=== PATIENT | female | born 1985 | race American Indian/Alaskan Native ===

== ENCOUNTER 2016-06-30 16:21 | Emergency (ER) | payer OTHER ==
[2016-06-30 16:21] VITALS: BMI 30.2
[2016-06-30 17:25] VITALS: BP 124/79; PULSE 97; RESP 18; TEMP 98.1; O2SAT 99
[2016-06-30] MEDS ORDERED: Sodium Chloride 0.9% 1,000 ML IV STA (18:50)
[2016-06-30] MEDS ORDERED: Morphine 4 mg/ml ISec IVP STA (18:50)
[2016-06-30 19:39] LABS: ADD MANUAL DIFF? NO
[2016-06-30 19:48] LABS: EOS % 0.2 % (1.5-5.0); GRAN # 11.73 (1.4-6.5); GRAN % 86.4 % (50.0-68.0); HEMATOCRIT 36.4 % (36.0-48.0); LYMPH # 1.3 (1.2-3.4); LYMPH % 9.7 % (22.0-35.0); MEAN CELL VOLUME 92.6 fL (80.0-105.0); MEAN CORPUSCULAR HEMOGLOBIN 31.8 pg (25.0-35.0); MEAN CORPUSCULAR HGB CONC 34.3 g/dl (31.0-37.0); MEAN PLATELET VOLUME 9.6 fl (7.0-11.0); MONO # 0.5 (0.1-0.6); MONO % 3.7 % (1.0-6.0); PLATELET COUNT 328 10^3/uL (120.0-450.0); RED CELL DISTRIBUTION WIDTH 12.2 % (11.5-14.5); WHITE BLOOD COUNT 13.6 10^3/ul (4.5-11.0)
[2016-06-30 19:51] LABS: RETIC% 1.99 % (0.5-1.5)
[2016-06-30 19:53] LABS: ALB/GLOB RATIO 1.2 (1.1-1.8); ALKALINE PHOSPHATASE 73 U/L (38-133); ALT/SGPT 27 U/L (7-56); AST/SGOT 23 U/L (15-39); BLOOD UREA NITROGEN 9 mg/dL (7-21); CALCIUM 9.5 mg/dL (8.4-10.5); CARBON DIOXIDE 25 mmol/L (21-33); CHLORIDE 102 mmol/L (98-107); GFR AFRICAN-AMERICAN > 60; GLUCOSE,RANDOM 109 mg/dL (70-110); LIPASE 44 U/L (23-300); POTASSIUM 4.4 mmol/L (3.6-5.0); SODIUM 138 mmol/L (132-148); TOTAL PROTEIN 7.8 g/dL (5.8-8.3)
[2016-06-30 20:37] LABS: INR 0.93 (0.93-1.08); PARTIAL THROMBOPLASTIN TIME 24.5 Seconds (23.7-30.8)
[2016-06-30 22:44] LABS: URINE BILIRUBIN NEGATIVE (NEGATIVE); URINE BLOOD MODERATE (NEGATIVE); URINE GLUCOSE (UA) NEGATIVE (NEGATIVE); URINE KETONE NEGATIVE (NEGATIVE); URINE LEUKOCYTE ESTERASE MODERATE Leu/uL (NEGATIVE); URINE PROTEIN NEGATIVE mg/dL (<30 mg/dL); URINE UROBILINOGEN 0.2 E.U./dL (<1 E.U./dL)
[2016-06-30 22:47] LABS: URINE APPEARANCE TURBID (CLEAR); URINE COLOR YELLOW (YELLOW)
[2016-06-30] MEDS ORDERED: cefTRIAXone 1 gm 100 ML IVPB STA (22:51)
[2016-06-30 22:54] LABS: URINE BACTERIA MOD (NEG)
--- NOTE | 2016-06-30 23:18 | ED PDOC ---
Arrival/HPI - General Chief Complaint: Pain, Chronic Time Seen by Provider: 06/30/16 18:32 Historian: Patient - History of Present Illness Narrative History of Present Illness (Text): 06/30/16 23:15 30yo female with alleged history of sickle cell who present with complaint of generalized bodyache and diffuse abdominal pain. +Dysuria. denies nausea, vomiting, diarrhea, constipation, hematuria, fever, chills. She thinks she is having sickle cell crisis. states she was given a prescription for her sickle cell months ago by her PMD, but never filled it. She notes that she have not taken any medication for long time. Past Medical History - Provider Review Nursing Documentation Reviewed: Yes - Infectious Disease Hx of Infectious Diseases: None - Tetanus Immunization Tetanus Immunization: Unknown - Past Medical History Past Medical History: No Previous - Cardiac Hx Cardiac Disorders: No - Pulmonary Hx Respiratory Disorders: No - Neurological Hx Neurological Disorder: No - HEENT Hx HEENT Disorder: No - Renal Hx Renal Disorder: No - Endocrine/Metabolic Hx Endocrine Disorders: No - Hematological/Oncological Hx Sickle Cell Disease: Yes - Integumentary Hx Dermatological Disorder: No - Musculoskeletal/Rheumatological Hx Musculoskeletal Disorders: No - Gastrointestinal Hx Gastrointestinal Disorders: No - Genitourinary/Gynecological Hx Genitourinary Disorders: No - Psychiatric Hx Psychophysiologic Disorder: No Hx Depression: No Hx Emotional Abuse: No Hx Physical Abuse: No Hx Substance Use: No - Past Surgical History Past Surgical History: No Previous - Anesthesia Hx Anesthesia: No Hx Anesthesia Reactions: No Hx Malignant Hyperthermia: No - Suicidal Assessment Feels Threatened In Home Enviroment: No Family/Social History - Physician Review Nursing Documentation Reviewed: Yes Family/Social History: Unknown Family HX Smoking Status: Heavy Smoker > 10 Cigarettes Daily Hx Alcohol Use: Yes (SOCIAL) Frequency of alcohol use: Socially Hx Substance Use: No Hx Substance Use Treatment: No Allergies/Home Meds Allergies/Adverse Reactions: Allergies aspirin Allergy (Verified 01/07/16 19:24) SWELLING Review of Systems - Physician Review All systems were reviewed & negative as marked: Yes - Review of Systems Eyes: Normal ENT: Normal Respiratory: Normal Cardiovascular: Normal Gastrointestinal: Abdominal Pain. absent: Constipation, Diarrhea, Nausea, Vomiting, Hematochezia, Hematemesis Genitourinary Female: Dysuria. absent: Frequency, Hematuria Musculoskeletal: Normal Skin: Normal Neurological: Normal Endocrine: Normal Hemo/Lymphatic: Normal Psychiatric: Normal Physical Exam Vital Signs Reviewed: Yes Vital Signs Temp Pulse Resp BP Pulse Ox 06/30/16 17:21 98.1 F 97 H 18 124/79 99 Temperature: Afebrile Blood Pressure: Normal Pulse: Regular Respiratory Rate: Normal Appearance: Positive for: Well-Appearing, Non-Toxic, Comfortable Pain Distress: None Mental Status: Positive for: Alert and Oriented X 3 - Systems Exam Head: Present: Atraumatic, Normocephalic Pupils: Present: PERRL Extroacular Muscles: Present: EOMI Conjunctiva: Present: Normal Mouth: Present: Moist Mucous Membranes Neck: Present: Normal Range of Motion Respiratory/Chest: Present: Clear to Auscultation, Good Air Exchange. No: Respiratory Distress, Accessory Muscle Use Cardiovascular: Present: Regular Rate and Rhythm, Normal S1, S2. No: Murmurs Abdomen: Present: Tenderness (Diffuse), Normal Bowel Sounds (Hyperactive x4), Other (Soft). No: Distention, Peritoneal Signs, Rebound, Guarding, McBurney's Point Tender, Rovsing's Sign Present Back: Present: Normal Inspection Upper Extremity: Present: Normal Inspection. No: Cyanosis, Edema Lower Extremity: Present: Normal Inspection. No: Edema Neurological: Present: GCS=15, CN II-XII Intact, Speech Normal Skin: Present: Warm, Dry, Normal Color. No: Rashes Psychiatric: Present: Alert, Oriented x 3, Normal Insight, Normal Concentration Medical Decision Making ED Course and Treatment: 07/01/16 03:39 PT presented in ED for stated history. She states her pain improved in ED on re evaluation. Lab was unremarkable except mild leukocytosis. She was treated with Rocephin in ED for UTI and DC home with keflex. Referred to her PMD . TRT ER for any new or worsening symptoms. - Lab Interpretations Lab Results: 06/30/16 19:34 06/30/16 19:34 Lab Results 06/30/16 22:29: Urine Color Yellow, Urine Appearance Turbid, Urine pH 6.0, Ur Specific [place] 1.025, Urine Protein Negative, Urine Glucose (UA) Negative, Urine Ketones Negative, Urine Blood Moderate H, Urine Nitrate Negative, Urine Bilirubin Negative, Urine Urobilinogen 0.2, Ur Leukocyte Esterase Moderate H, Urine RBC 1 - 3, Urine WBC 10 - 15, Ur Epithelial Cells 4 - 5, Urine Bacteria Mod 06/30/16 19:34: WBC 13.6 H D, RBC 3.93, Hgb 12.5, Hct 36.4, MCV 92.6, MCH 31.8, MCHC 34.3, RDW 12.2, Plt Count 328, MPV 9.6, Gran % 86.4 H, Lymph % (Auto) 9.7 L , [place] % (Auto) 3.7, Eos % (Auto) 0.2 L, Baso % (Auto) 0.0, Gran # 11.73 H, Lymph # 1.3, [place]in # 0.5, Eos # 0.0, Baso # 0.00, Retic Count 1.99 H, PT 10.0, INR 0.93, APTT 24.5, Sodium 138, Potassium 4.4, Chloride 102, Carbon Dioxide 25 , Anion Gap 15, BUN 9, Creatinine 0.8, Est GFR ( Amer) > 60, Est GFR (Non -Af Amer) > 60, Random Glucose 109, Calcium 9.5, Total Bilirubin 1.0, AST 23, ALT 27, Alkaline Phosphatase 73, Total Protein 7.8, Albumin 4.2, Globulin 3.6, Albumin/Globulin Ratio 1.2, Lipase 44 - Medication Orders Current Medication Orders: Discontinued Medications Famotidine (Pepcid) 20 mg IVP STAT STA Stop: 06/30/16 18:51 Last Admin: 06/30/16 19:48 Dose: 20 MG IVP Administration Document 06/30/16 19:48 HI (Rec: 06/30/16 19:48 [facility] [id number]) Charges for Administration # of IVP Administrations 1 Sodium Chloride (Sodium Chloride 0.9%) 1,000 mls @ 1,000 mls/hr IV .Q1H STA Stop: 06/30/16 19:49 Last Admin: 06/30/16 19:48 Dose: 1,000 MLS/HR eMAR Start Stop Document 06/30/16 19:48 HI (Rec: 06/30/16 19:51 [facility] [id number]) Intravenous Solution Start Date 06/30/16 Start Time 19:48 End Date 06/30/16 End time 20:48 Total Infusion Time 60 Ceftriaxone Sodium (Rocephin 1 Gram Ivpb) 100 mls @ 200 mls/hr IVPB STAT STA PRN Reason: Protocol Stop: 06/30/16 23:20 Last Admin: 06/30/16 23:43 Dose: 200 MLS/HR eMAR Start Stop Document 06/30/16 23:43 FJPatric (Rec: 06/30/16 23:43 FJA [id number]) Intravenous Solution Start Date 06/30/16 Start Time 23:43 End Date 07/01/16 End time 00:13 Total Infusion Time 30 Morphine Sulfate (Morphine) 4 mg IVP STAT STA Stop: 06/30/16 18:51 Last Admin: 06/30/16 19:44 Dose: 4 MG MAR Pain Assessment Document 06/30/16 19:44 HI (Rec: 06/30/16 19:48 [facility] [id number]) Pain Reassessment Is this a pain reassessment? No Sleep Is patient sleeping during reassessment? No Presence of Pain Presence of Pain No Pain Scale Used Pain Scale Used Numeric Location Pain Location Body Site Abdomen Description Intensity of Pain at present 9 Pain Behavior Moaning IVP Administration Document 06/30/16 19:44 HI (Rec: 06/30/16 19:48 [id number]) Charges for Administration # of IVP Administrations 1 Disposition/Present on Arrival - Present on Arrival Any Indicators Present on Arrival: No History of DVT/PE: No History of Uncontrolled Diabetes: No Urinary Catheter: No History of Decub. Ulcer: No History Surgical Site Infection Following: None - Disposition Have Diagnosis and Disposition been Completed?: Yes Diagnosis: UTI (urinary tract infection) Disposition: HOME/ ROUTINE Disposition Time: 23:20 Patient Plan: Discharge Condition: STABLE Discharge Instructions (ExitCare): Urinary Tract Infection in Women (ED) Additional Instructions: Take medication as directed Drink plenty of fluid Follow up with your Doctor Return to ER for any new or worsening symptoms Prescriptions: Cephalexin [cephalexin] 500 mg PO QID #28 cap Famotidine [Pepcid] 40 mg PO DAILY #15 tab Referrals: Vince Baker, [Primary Care Provider] - Follow up with primary Forms: WORK NOTE
== END 2016-07-01 01:10 | disposition home or self-care (01) ==
LOC: ED 16:21
DX: N39.0 Urinary tract infection, site not specified (principal)
CPT/HCPCS: 80053; 81001; 83690; 85025; 85044; 85610; 85730; 87086; 96361; 96365; 96375; 99281; J0696; J2270; J7040

== ENCOUNTER 2016-08-22 07:32 | Observation (INO) | payer OTHER ==
[2016-08-22 07:38] VITALS: BMI 27.4
[2016-08-22] MEDS ORDERED: Sodium Chloride 0.9% 1,000 ML IV STA (07:51)
--- NOTE | 2016-08-22 08:06 | ED PDOC ---
Arrival/HPI <Lew Martinsiy - Last Filed: 08/22/16 12:07> - General Historian: Patient - History of Present Illness Time/Duration: 24 hours Symptom Onset: Gradual Symptom Course: Worsening Quality: Aching Severity Level: 9 <Maik Quarles - Last Filed: 08/22/16 15:33> - General Chief Complaint: Abdominal Pain Time Seen by Provider: 08/22/16 07:38 - History of Present Illness Narrative History of Present Illness (Text): 31 F with pmh of sickle trait presents with abdominal pain. Pt states that her pain started yesterday and has gotten progressively worse. She denies any nausea or vomiting but states that she had one episode of non bloody diarrhea this morning. Pt admits to partying last night and drinking "enough" alcohol. Pt also complaining of dysuria but denies any frequency or urgency. Denies any headache, dizziness, f/c, chest pain, shortness of breath, n/v. PMD: Dr Milton Buenrostro (Maik Quarles) Past Medical History - Provider Review Nursing Documentation Reviewed: Yes - Infectious Disease Hx of Infectious Diseases: None - Tetanus Immunization Tetanus Immunization: Unknown - Past Medical History Past Medical History: No Previous - Cardiac Hx Cardiac Disorders: No - Pulmonary Hx Respiratory Disorders: No - Neurological Hx Neurological Disorder: No - HEENT Hx HEENT Disorder: No - Renal Hx Renal Disorder: No - Endocrine/Metabolic Hx Endocrine Disorders: No - Hematological/Oncological Hx Sickle Cell Disease: Yes - Integumentary Hx Dermatological Disorder: No - Musculoskeletal/Rheumatological Hx Musculoskeletal Disorders: No - Gastrointestinal Hx Gastrointestinal Disorders: No - Genitourinary/Gynecological Hx Genitourinary Disorders: No - Psychiatric Hx Psychophysiologic Disorder: No Hx Depression: No Hx Emotional Abuse: No Hx Physical Abuse: No Hx Substance Use: No - Past Surgical History Past Surgical History: No Previous - Anesthesia Hx Anesthesia: No Hx Anesthesia Reactions: No Hx Malignant Hyperthermia: No - Suicidal Assessment Feels Threatened In Home Enviroment: No <Maik Quarles - Last Filed: 08/22/16 15:33> Family/Social History Family/Social History: No Known Family HX Smoking Status: Heavy Smoker > 10 Cigarettes Daily Hx Alcohol Use: Yes Frequency of alcohol use: Socially Hx Substance Use: No Hx Substance Use Treatment: No <Maik Quarles - Last Filed: 08/22/16 15:33> Allergies/Home Meds <Pillo Martins - Last Filed: 08/22/16 12:07> <Maik Quarles - Last Filed: 08/22/16 15:33> Allergies/Adverse Reactions: Allergies aspirin Allergy (Verified 08/22/16 14:28) SWELLING fruit Allergy (Uncoded 08/22/16 14:28) NAUSEA Home Medications: Home Meds Medication Instructions Recorded Confirmed No Known Home Med 08/22/16 08/22/16 Review of Systems - Review of Systems Constitutional: absent: Fatigue, Fevers Eyes: absent: Vision Changes ENT: absent: Hearing Changes Respiratory: absent: SOB, Cough Cardiovascular: absent: Chest Pain, Palpitations Gastrointestinal: Abdominal Pain, Diarrhea. absent: Nausea, Vomiting Genitourinary Female: Dysuria. absent: Frequency Musculoskeletal: absent: Arthralgias Skin: absent: Rash Neurological: absent: Headache, Dizziness Endocrine: absent: Diaphoresis Psychiatric: absent: Anxiety, Depression <Maik Quarles - Last Filed: 08/22/16 15:33> Physical Exam Temperature: Afebrile Blood Pressure: Normal Pulse: Tachycardic Respiratory Rate: Normal Appearance: Positive for: Well-Appearing, Non-Toxic, Comfortable Pain Distress: Mild Mental Status: Positive for: Alert and Oriented X 3 - Systems Exam Head: Present: Atraumatic, Normocephalic Pupils: Present: PERRL Extroacular Muscles: Present: EOMI Mouth: Present: Moist Mucous Membranes Neck: Present: Normal Range of Motion Respiratory/Chest: Present: Clear to Auscultation, Good Air Exchange. No: Respiratory Distress, Accessory Muscle Use Cardiovascular: Present: Regular Rate and Rhythm, Normal S1, S2. No: Murmurs Abdomen: Present: Tenderness (LLQ and RLQ tenderness. - [place] sign ), Normal Bowel Sounds, Guarding. No: Distention, Peritoneal Signs, Rebound Upper Extremity: Present: Normal Inspection. No: Cyanosis, Edema Lower Extremity: Present: Normal Inspection. No: Edema, CALF TENDERNESS Neurological: Present: GCS=15, CN II-XII Intact, Speech Normal Skin: Present: Warm, Dry, Normal Color. No: Rashes Psychiatric: Present: Alert, Oriented x 3, Normal Insight, Normal Concentration <Raminfar,Maik - Last Filed: 08/22/16 15:33> Vital Signs Temp Pulse Resp BP Pulse Ox 08/22/16 11:19 81 17 131/70 99 08/22/16 09:52 91 H 17 118/91 H 100 08/22/16 07:46 98.1 F 100 H 18 120/78 100 Medical Decision Making <Pillo Martins - Last Filed: 08/22/16 12:07> <Maik Quarles - Last Filed: 08/22/16 15:33> ED Course and Treatment: 08/22/16 09:55 Patient seen and examined with resident Came up with treatment and disposition plan with resident (Pillo Martins) Impression: 31 F with pmh of sickle trait presents to the ED with lower abdominal pain. Differential Diagnosis included but are not limited to: Enteritis/ pancreatitis / cystitis / appendicitis / IBS Plan: - CBC, CMP, Lipase - Urinalysis - IVF 1 L bolus - Pain control - Toradol 15mg Stat - Reassess and disposition Prior Visits: Notes and results from previous visits were reviewed. On 06/30/16 patient came in complaining of similar symptoms. Progress Notes: 08/22/16 11:30 CT abd & pelvis: Abnormal dilated thick walled loops of small bowel in the LUQ consistent with Enteritis or inflammatory bowel dx. IV abx with Rocpehin and Flagyl 08/22/16 12:[address] Gregory which agreed to take the patient under the hospitalist service. Thank you. 08/22/16 12:12 Will admit to obs to med surg floor. (Maik Quarles) - Lab Interpretations Lab Results: 08/22/16 07:50 08/22/16 07:50 Lab Results 08/22/16 07:50: Sodium 142, Potassium 4.1, Chloride 106, Carbon Dioxide 26, Anion Gap 14, BUN 11, Creatinine 0.8, Est GFR ( Amer) > 60, Est GFR (Non- Af Amer) > 60, Random Glucose 110, Calcium 9.3, Total Bilirubin 0.5, AST 26, ALT 41, Alkaline Phosphatase 73, Total Protein 7.4, Albumin 4.5, Globulin 2.9, Albumin/Globulin Ratio 1.5, Lipase 46 08/22/16 07:50: WBC 14.8 H, RBC 3.99, Hgb 12.8, Hct 37.4, MCV 93.7, MCH 32.1, MCHC 34.2, RDW 12.4, Plt Count 331, MPV 10.2, Gran % 85.8 H, Lymph % (Auto) 8.1 L, [place] % (Auto) 5.2, Eos % (Auto) 0.7 L, Baso % (Auto) 0.2, Gran # 12.68 H, Lymph # 1.2, [place] # 0.8 H, Eos # 0.1, Baso # 0.03 - Medication Orders Current Medication Orders: Metronidazole (Flagyl) 500 mg in 100 mls @ 100 mls/hr IVPB Q8 IAN PRN Reason: Protocol Ceftriaxone Sodium (Rocephin 1 Gram Ivpb) 1 gm in 100 mls @ 100 mls/hr IVPB DAILY IAN PRN Reason: Protocol Sodium Chloride (Sodium Chloride 0.9%) 1,000 mls @ 100 mls/hr IV .Q10H IAN Last Admin: 08/22/16 12:41 Dose: 100 mls/hr Ibuprofen (Motrin Tab) 600 mg PO Q6H PRN PRN Reason: Pain, moderate (4-7) Ondansetron HCl (Zofran Inj) 4 mg IVP Q6H PRN PRN Reason: Nausea/Vomiting Last Admin: 08/22/16 12:41 Dose: 4 mg Pantoprazole Sodium (Protonix Inj) 40 mg IVP DAILY IAN Discontinued Medications Sodium Chloride (Sodium Chloride 0.9%) 1,000 mls @ 999 mls/hr IV .Q1H1M STA Stop: 08/22/16 08:51 Last Admin: 08/22/16 08:27 Dose: 999 mls/hr Metronidazole (Flagyl) 500 mg in 100 mls @ 100 mls/hr IVPB STAT STA PRN Reason: Protocol Stop: 08/22/16 12:25 Ceftriaxone Sodium (Rocephin 1 Gram Ivpb) 1 gm in 100 mls @ 200 mls/hr IVPB STAT STA PRN Reason: Protocol Stop: 08/22/16 11:59 Last Admin: 08/22/16 12:29 Dose: 200 mls/hr Morphine Sulfate (Morphine) 2 mg IVP STAT STA Stop: 08/22/16 12:12 Last Admin: 08/22/16 12:35 Dose: 2 mg Re-Assess: MACARIO Pain Assessment Document 08/22/16 13:35 ML (Rec: 08/22/16 13:39 ML [id number]) Pain Reassessment Is this a pain reassessment? Yes Presence of Pain Presence of Pain No Ondansetron HCl (Zofran Inj) Confirm Administered Dose 4 mg .ROUTE .STK-MED ONE Stop: 08/22/16 12:40 Last Admin: 08/22/16 12:41 Dose: Pneumococcal Polyvalent Vaccine (Pneumovax 23 Vaccine) 0.5 ml IM .ONCE ONE Stop: 08/22/16 15:20 ED OBSERVATION Date of observation admission: 08/22/16 Time of observation admission: 09:55 <Pillo Martins - Last Filed: 08/22/16 12:07> <Maik Quarles - Last Filed: 08/22/16 15:33> - Observation admission statement Patient is being placed in observation because:: Abdominal pain (Pillo Martins) - Goals of Observation Goals of observation are:: Monitor and treat patients symptoms (Pillo Martins) - Progress Note Progress Note: 08/22/16 09:55 Patient with lower abdominal pain. She is resting comfortably with no new complaints. 08/22/16 11:55 Patient is resting comfortably, in no acute distress. (Pillo Martins) Disposition/Present on Arrival - Disposition Disposition Time: 09:55 <Pillo Martins - Last Filed: 08/22/16 12:07> - Present on Arrival Any Indicators Present on Arrival: No History of DVT/PE: No History of Uncontrolled Diabetes: No Urinary Catheter: No History of Decub. Ulcer: No History Surgical Site Infection Following: None - Disposition Have Diagnosis and Disposition been Completed?: Yes Patient Plan: Observation <Maik Quarles - Last Filed: 08/22/16 15:33> - Disposition Diagnosis: Abdominal pain Disposition: HOSPITALIZED Patient Problems: Current Active Problems Problem Status Onset Abdominal pain Acute Condition: STABLE
[2016-08-22 08:30] LABS: ALB/GLOB RATIO 1.5 (1.1-1.8); ALKALINE PHOSPHATASE 73 U/L (38-133); ALT/SGPT 41 U/L (7-56); AST/SGOT 26 U/L (15-39); BILIRUBIN,TOTAL 0.5 mg/dL (0.2-1.3); BLOOD UREA NITROGEN 11 mg/dL (7-21); CALCIUM 9.3 mg/dL (8.4-10.5); CARBON DIOXIDE 26 mmol/L (21-33); CHLORIDE 106 mmol/L (95-110); GFR AFRICAN-AMERICAN > 60; GLUCOSE,RANDOM 110 mg/dL (70-110); LIPASE 46 U/L (23-300); POTASSIUM 4.1 mmol/L (3.6-5.0); SODIUM 142 mmol/L (132-148); TOTAL PROTEIN 7.4 g/dL (5.8-8.3)
[2016-08-22 08:36] LABS: ADD MANUAL DIFF? NO; BASO # 0.03 K/mm3 (0.0-2.0); BASO % 0.2 % (0.0-3.0); EOS # 0.1 (0.0-0.7); EOS % 0.7 % (1.5-5.0); GRAN # 12.68 (1.4-6.5); GRAN % 85.8 % (50.0-68.0); HEMATOCRIT 37.4 % (36.0-48.0); LYMPH # 1.2 (1.2-3.4); LYMPH % 8.1 % (22.0-35.0); MEAN CELL VOLUME 93.7 fL (80.0-105.0); MEAN CORPUSCULAR HEMOGLOBIN 32.1 pg (25.0-35.0); MEAN CORPUSCULAR HGB CONC 34.2 g/dl (31.0-37.0); MEAN PLATELET VOLUME 10.2 fl (7.0-11.0); MONO # 0.8 (0.1-0.6); MONO % 5.2 % (1.0-6.0); PLATELET COUNT 331 10^3/uL (120.0-450.0); RED CELL DISTRIBUTION WIDTH 12.4 % (11.5-14.5); WHITE BLOOD COUNT 14.8 10^3/ul (4.5-11.0)
[2016-08-22 10:39] LABS: PH,URINE 5.5 (4.7-8.0); URINE BILIRUBIN NEGATIVE (NEGATIVE); URINE BLOOD LARGE (NEGATIVE); URINE GLUCOSE (UA) NEGATIVE (NEGATIVE); URINE KETONE NEGATIVE (NEGATIVE); URINE LEUKOCYTE ESTERASE NEGATIVE Leu/uL (NEGATIVE); URINE PROTEIN 30 mg/dL (<30 mg/dL); URINE UROBILINOGEN 0.2 E.U./dL (<1 E.U./dL)
[2016-08-22 10:41] LABS: URINE APPEARANCE SLIGHT-CLOUDY (CLEAR); URINE COLOR YELLOW (YELLOW)
[2016-08-22 10:51] LABS: URINE RBC 25 - 30 /hpf (0-2)
[2016-08-22 10:52] LABS: URINE BACTERIA MOD (NEG)
--- NOTE | 2016-08-22 11:24 | CT ---
PROCEDURE: CT Abdomen and Pelvis without intravenous contrast HISTORY: abd pain COMPARISON: None. TECHNIQUE: Without contrast.. Contrast Dose: Radiation dose: Total exam DLP = 689 mGy-cm. This CT exam was performed using one or more of the following dose reduction techniques: Automated exposure control, adjustment of the mA and/or kV according to patient size, and/or use of iterative reconstruction technique. FINDINGS: LOWER THORAX: Unremarkable. LIVER: Unremarkable. No gross lesion or ductal dilatation. GALLBLADDER AND BILE DUCTS: Unremarkable. PANCREAS: Unremarkable. No gross lesion or ductal dilatation. SPLEEN: Unremarkable. ADRENALS: Unremarkable. No mass. KIDNEYS AND URETERS: Unremarkable. No hydronephrosis. No solid mass. VASCULATURE: Unremarkable. No aortic aneurysm. BOWEL: Abnormal dilated thick-walled loops of small bowel are seen in the left upper quadrant. This is consistent with enteritis or inflammatory bowel disease. Findings are best appreciated on images 53 through 79. The study is limited by lack of IV and oral contrast. The colon is normal in size. The stomach is unremarkable There is no evidence of pneumatosis or free air APPENDIX: Unremarkable. Normal appendix. PERITONEUM: Unremarkable. No free fluid. No free air. LYMPH NODES: Unremarkable. No enlarged lymph nodes. BLADDER: Unremarkable. REPRODUCTIVE: Large lobulated fibroid uterus BONES: No acute fracture. OTHER FINDINGS: None. IMPRESSION: Abnormal dilated thick-walled loops of small bowel in the left upper quadrant consistent with enteritis or inflammatory bowel disease.
[2016-08-22] MEDS ORDERED: metroNIDAZOLE IV 500 mg/100 ml 500 MG/100 ML BAG IVPB STA (11:26)
[2016-08-22] MEDS ORDERED: cefTRIAXone 1 gm 1 GM/100 ML BAG IVPB STA (11:30)
[2016-08-22] MEDS ORDERED: Morphine 2 mg/ml ISec IVP STA (12:11)
[2016-08-22] MEDS: Sodium Chloride 0.9% 1,000 ML IV SCH (12:41)
--- NOTE | 2016-08-22 13:56 | CP.PCM.HP ---
Addendum entered and electronically signed by Viki Alexis DO 08/22/16 14:38: Pt's allergy is to aspirin, not tylenlol. But pt reports tolerating midol/ ibuprophen without any reaction. Ordered PO ibuprophen prn for pain. Original Note: <Viki Alexis - Last Filed: 08/22/16 14:21> History of Present Illness - History of Present Illness History of Present Illness: 31 yo F w/PMHx of uterine fibroids presents to ED with cramping intermittent abdominal pain for past day. Reports one episode of non-bloody diarrhea prior night and one episode of non-bilious, non-bloody emesis in ED today. Reports chills over the past day, denies fever, SOB, chest pain, nausea. LMP: 2016. PMD: Dr. Milton Buenrostro PMHx: uterine fibroids Psxhx: denies allergies: tylenol medications: none social: former smoker, social drinker, denies illicit drugs Family hx: DM, no CA Present on Admission - Present on Admission Any Indicators Present on Admission: No Review of Systems - Review of Systems All systems: reviewed and no additional remarkable complaints except - Constitutional Constitutional: Chills. absent: Fever - Cardiovascular Cardiovascular: absent: Chest Pain, Dyspnea - Respiratory Respiratory: absent: Cough, Dyspnea on Exertion - Gastrointestinal Gastrointestinal: Abdominal Pain, Diarrhea Past Patient History - Infectious Disease Hx of Infectious Diseases: None - Tetanus Immunizations Tetanus Immunization: Unknown - Past Social History Smoking Status: Heavy Smoker > 10 Cigarettes Daily - CARDIAC Hx Cardiac Disorders: No - PULMONARY Hx Respiratory Disorders: No - NEUROLOGICAL Hx Neurological Disorder: No - HEENT Hx HEENT Problems: No - RENAL Hx Chronic Kidney Disease: No - ENDOCRINE/METABOLIC Hx Endocrine Disorders: No - HEMATOLOGICAL/ONCOLOGICAL Hx Sickle Cell Disease: Yes - INTEGUMENTARY Hx Dermatological Problems: No - MUSCULOSKELETAL/RHEUMATOLOGICAL Hx Musculoskeletal Disorders: No - GASTROINTESTINAL Hx Gastrointestinal Disorders: No - GENITOURINARY/GYNECOLOGICAL Hx Genitourinary Disorders: No - PSYCHIATRIC Hx Psychophysiologic Disorder: No Hx Depression: No Hx Emotional Abuse: No Hx Physical Abuse: No Hx Substance Use: No - SURGICAL HISTORY Hx Surgeries: No - ANESTHESIA Hx Anesthesia: No Hx Anesthesia Reactions: No Hx Malignant Hyperthermia: No Meds Allergies/Adverse Reactions: Allergies Allergy/AdvReac Type Severity Reaction Status Date / Time aspirin Allergy SWELLING Verified 08/22/16 14:28 fruit Allergy NAUSEA Uncoded 08/22/16 14:28 Physical Exam - Constitutional Appears: Non-toxic - Head Exam Head Exam: ATRAUMATIC, NORMOCEPHALIC - Eye Exam Eye Exam: EOMI, Normal appearance - ENT Exam ENT Exam: Mucous Membranes Moist, Normal Exam - Respiratory Exam Respiratory Exam: Clear to Auscultation Bilateral, NORMAL BREATHING PATTERN - Cardiovascular Exam Cardiovascular Exam: +S1, +S2. absent: Bradycardia - GI/Abdominal Exam GI & Abdominal Exam: Soft, Tenderness Additional comments: RLQ and LLQ tenderness - Exam External exam: absent: Ecchymosis, Erythema - Extremities Exam Extremities exam: Positive for: normal capillary refill, pedal pulses present - Neurological Exam Neurological exam: Alert, Oriented x3 - Skin Skin Exam: Intact, Normal Color Results - Vital Signs Recent Vital Signs: Last Vital Signs Temp 98.1 F 08/22/16 07:46 Pulse 81 08/22/16 11:19 Resp 17 08/22/16 11:19 BP 131/70 08/22/16 11:19 Pulse Ox 99 08/22/16 11:19 - Labs Result Diagrams: 08/22/16 07:50 08/22/16 07:50 Labs: Laboratory Results - last 24 hr 08/22/16 10:20 Urine Color Yellow Urine Appearance Slight-cloudy Urine pH 5.5 Ur Specific [place] >= 1.030 Urine Protein 30 H Urine Glucose (UA) Negative Urine Ketones Negative Urine Blood Large H Urine Nitrate Negative Urine Bilirubin Negative Urine Urobilinogen 0.2 Ur Leukocyte Esterase Negative Urine RBC 25 - 30 Urine WBC 1 - 3 Ur Epithelial Cells 4 - 5 Urine Bacteria Mod Assessment & Plan - Assessment and Plan (Free Text) Plan: 31 yo F w/PMHx of uterine fibroids presents with one day of abdominal pain and Vx1 and Dx1 both without blood. Abdominal CT shows dilated small bowel. WBC of 14 and currently afebrile. Transferred to remote telemetry for abdominal pain. Abdominal Pain/enteritis: metronidazole ceftriaxone IVPB 1gm qd NS 100cc/hr NPO zofran 4mg q6h prn protonix IV c.diff toxin and antigens ordered ova and parasite stool ordered stool cx ordered GI consult apprecitated PPx measures: protonix, SCD <Bri,Anwar A - Last Filed: 08/22/16 15:50> Results - Vital Signs Recent Vital Signs: Last Vital Signs Temp 98.1 F 08/22/16 14:59 Pulse 81 08/22/16 14:59 Resp 17 08/22/16 14:59 BP 131/70 08/22/16 14:59 Pulse Ox 99 08/22/16 11:19 - Labs Result Diagrams: 08/22/16 07:50 08/22/16 07:50 Labs: Laboratory Results - last 24 hr 08/22/16 10:20 Urine Color Yellow Urine Appearance Slight-cloudy Urine pH 5.5 Ur Specific [place] >= 1.030 Urine Protein 30 H Urine Glucose (UA) Negative Urine Ketones Negative Urine Blood Large H Urine Nitrate Negative Urine Bilirubin Negative Urine Urobilinogen 0.2 Ur Leukocyte Esterase Negative Urine RBC 25 - 30 Urine WBC 1 - 3 Ur Epithelial Cells 4 - 5 Urine Bacteria Mod Attending/Attestation - Attestation I have personally seen and examined this patient.: Yes I have fully participated in the care of the patient.: Yes I have reviewed all pertinent clinical information: Yes Notes (Text): 08/22/16 15:46 31 year old female with past medical history of uterine fibroids who presented with complaint of abdominal pain with nausea, vomiting and diarrhea x [address] abd/pelvis showed dilated small bowel consistent with possible enteritis. Continue with NPO for now with IVF, protonix, analgesics and antiemetics. Consider advancing diet to liquid tonight or tomorrow AM if symptoms improved. GI evaluation is requested. She has leukocytosis of 14.8 likely reactive secondary to above. Continue with antibiotics for now while awaiting cultures. Stool workup was ordered. Recommended outpatient [facility]END[facility] follow up for fibroids and persistent menstrual pains. Joshua Gregory MD Hospitalist.
[2016-08-22] MEDS ORDERED: Pneumococcal 23-Valent Vaccine IM ONE (15:19)
[2016-08-22 18:38] VITALS: RESP 18
[2016-08-22] MEDS: DiphenhydrAMINE 50 mg/ml Inj IVP PRN ×2 (20:37→23:15)
[2016-08-22] MEDS ORDERED: DiphenhydrAMINE 50 mg/ml Inj ONE (20:41)
[2016-08-22] MEDS ORDERED: Levalbuterol 0.63 MG/3 ML Inhal Soln UD IH STA (21:03)
[2016-08-22] MEDS ORDERED: EPINEPHrine 1 mg/ml (1:1000) Inj SC STA (21:30)
[2016-08-22] MEDS ORDERED: EPINEPHrine 1 mg/ml (1:1000) Inj ONE (21:35)
--- NOTE | 2016-08-23 00:48 | CP.PCM.PN ---
Subjective - Date & Time of Evaluation Date of Evaluation: 08/22/16 Time of Evaluation: 09:15 - Subjective Subjective: Rapid response note for Dr. Blas Rapid response called at 211 in room 365-2. Pt states she had chest tightness and had severe shortness of breath. Pt received Toradol at 1950, soon after she began to break out in hives, redness, and edema and benadryl was administered. Pt continued to develop shortness of breath. Pt was given solumedrol and placed on O2 nasal cannula at 3 L. SOB continued to worsen and pt was placed on nonrebreather which did not help. Rapid response was then called. Initial vitals were BP-140/87, HR-155, R- 24, Pulse Ox-100%. Throughout duration of episode, pt was alert and responsive. Pt stated she had mild improvement in breathing, but felt as though her throat was closing up. At this time, pt was given epinephrine SC injection. Pt began to feel much better and stated she had great improvement in her symptoms. Pt did not become hypoxic at any point. Vital signs at the end were BP-132/66, HR -138, Pulse Ox 100%. Objective - Vital Signs/Intake and Output Vital Signs (last 24 hours): Temp Pulse Resp BP Pulse Ox 98.4 F 165 H 18 114/73 98 08/22/16 15:19 08/22/16 21:12 08/22/16 15:19 08/22/16 15:19 08/22/16 15:19 Intake and Output: 08/22/16 08/23/16 18:59 06:59 Intake Total 540 Balance 540 - Medications Medications: Current Medications Diphenhydramine HCl (Benadryl) 50 mg IVP Q4H PRN PRN Reason: Allergy symptoms Last Admin: 08/22/16 23:15 Dose: 50 mg Metronidazole (Flagyl) 500 mg in 100 mls @ 100 mls/hr IVPB Q8 IAN PRN Reason: Protocol Ceftriaxone Sodium (Rocephin 1 Gram Ivpb) 1 gm in 100 mls @ 100 mls/hr IVPB DAILY IAN PRN Reason: Protocol Sodium Chloride (Sodium Chloride 0.9%) 1,000 mls @ 100 mls/hr IV .Q10H IAN Last Admin: 08/22/16 12:41 Dose: 100 mls/hr Ondansetron HCl (Zofran Inj) 4 mg IVP Q6H PRN PRN Reason: Nausea/Vomiting Last Admin: 08/22/16 12:41 Dose: 4 mg Pantoprazole Sodium (Protonix Inj) 40 mg IVP DAILY IAN - Constitutional Appears: Non-toxic, No Acute Distress - Head Exam Head Exam: ATRAUMATIC, NORMAL INSPECTION - Respiratory Exam Respiratory Exam: Decreased Breath Sounds, NORMAL BREATHING PATTERN. absent: Rhonchi, Wheezes - Cardiovascular Exam Cardiovascular Exam: Tachycardia, REGULAR RHYTHM, +S1, +S2 - GI/Abdominal Exam GI & Abdominal Exam: Soft, Normal Bowel Sounds. absent: Tenderness - Extremities Exam Extremities Exam: Normal Inspection. absent: Calf Tenderness, Pedal Edema - Neurological Exam Neurological Exam: Alert, Awake, Oriented x3 - Psychiatric Exam Psychiatric exam: Normal Affect, Normal Mood - Skin Skin Exam: Intact, Normal Color, Warm Assessment and Plan - Assessment and Plan (Free Text) Plan: 31 y/o F presenting with anaphylactic reaction likely secondary to NSAID use. Pt last seen resting comfortably in bed, with no acute issues. Pt will have all NSAIDs removed from medications and have allergies appropriately updated in medical record. Pt will be monitored closely throughout the night for worsening respiratory status. Pt will be placed on remote telemetry for continued monitoring of vitals signs. Seen, reviewed, and discussed with attending Joey, PGY-1
[2016-08-23] MEDS: DiphenhydrAMINE 50 mg/ml Inj IVP PRN (05:40)
[2016-08-23] MEDS: metroNIDAZOLE IV 500 mg/100 ml 500 MG/100 ML BAG IVPB SCH ×2 (05:41→06:00)
[2016-08-23 08:19] LABS: BLOOD UREA NITROGEN 11 mg/dL (7-21); CALCIUM 7.9 mg/dL (8.4-10.5); CARBON DIOXIDE 23 mmol/L (21-33); CHLORIDE 108 mmol/L (95-110); GFR AFRICAN-AMERICAN > 60; GLUCOSE,RANDOM 150 mg/dL (70-110); POTASSIUM 4.3 mmol/L (3.6-5.0); SODIUM 137 mmol/L (132-148)
[2016-08-23 08:22] LABS: HEMATOCRIT 35.8 % (36.0-48.0); MEAN CELL VOLUME 93.2 fL (80.0-105.0); MEAN CORPUSCULAR HEMOGLOBIN 31.8 pg (25.0-35.0); MEAN CORPUSCULAR HGB CONC 34.1 g/dl (31.0-37.0); MEAN PLATELET VOLUME 10.1 fl (7.0-11.0); RED CELL DISTRIBUTION WIDTH 12.4 % (11.5-14.5); WHITE BLOOD COUNT 5.6 10^3/ul (4.5-11.0)
[2016-08-23 08:48] VITALS: BP 109/65; TEMP 97.8; O2SAT 100
[2016-08-23] MEDS: Sodium Chloride 0.9% 1,000 ML IV SCH (09:33)
[2016-08-23] MEDS ORDERED: cefTRIAXone 1 gm 1 GM/100 ML BAG IVPB SCH (10:00)
--- NOTE | 2016-08-23 10:02 | CARD ---
APPROVED REPORT EKG Measurement Heart [id number] VT [id number] [id number] <Conclusion> Sinus tachycardia with short VT Q in 3 PRWP NSSTWchanges
--- NOTE | 2016-08-23 11:03 | CP.PCM.CON ---
History of Present Illness - History of Present Illness History of Present Illness: RFC: Abdominal pain HPI: 31 year old female with a h/o fibroids who presents with abdominal pain. She reports that the pain started a few days ago, was diffuse across the upper and lower abdomen, and was severe. She was unable to identify an preceipatating factors. THe pain resolved since admission. She did reported one episode of diarrhea and one episode of vomiting. She has had pain like this before, but not as severe. No h/o DVT/PE. No h/o IBD. No endoscopy/colonoscopy in the past. No chest pain or sob. PMHx: uterine fibroids PSHx: None SHX: ex smoker, social drinker, denies illicit drug use Family history - no family history of GI issues ROS A comprehensive review of systems was performed and was negative apart from HPI Past Patient History - Infectious Disease Hx of Infectious Diseases: None - Tetanus Immunizations Tetanus Immunization: Unknown - Past Social History Smoking Status: Heavy Smoker > 10 Cigarettes Daily - CARDIAC Hx Cardiac Disorders: No - PULMONARY Hx Respiratory Disorders: No - NEUROLOGICAL Hx Neurological Disorder: No - HEENT Hx HEENT Problems: No - RENAL Hx Chronic Kidney Disease: No - ENDOCRINE/METABOLIC Hx Endocrine Disorders: No - HEMATOLOGICAL/ONCOLOGICAL Hx Sickle Cell Disease: Yes - INTEGUMENTARY Hx Dermatological Problems: No - MUSCULOSKELETAL/RHEUMATOLOGICAL Hx Musculoskeletal Disorders: No - GASTROINTESTINAL Hx Gastrointestinal Disorders: No - GENITOURINARY/GYNECOLOGICAL Hx Genitourinary Disorders: No - PSYCHIATRIC Hx Psychophysiologic Disorder: No Hx Depression: No Hx Emotional Abuse: No Hx Physical Abuse: No Hx Substance Use: No - SURGICAL HISTORY Hx Surgeries: No - ANESTHESIA Hx Anesthesia: No Hx Anesthesia Reactions: No Hx Malignant Hyperthermia: No Meds Allergies/Adverse Reactions: Allergies Allergy/AdvReac Type Severity Reaction Status Date / Time aspirin Allergy SWELLING Verified 08/22/16 14:28 ketorolac [From Toradol] Allergy ANAPHYLAXIS Verified 08/22/16 22:39 NSAIDS (Non-Steroidal Allergy ANAPHYLAXIS Verified 08/22/16 23:44 Anti-Inflamma fruit Allergy NAUSEA Uncoded 08/22/16 14:28 - Medications Medications: Current Medications Diphenhydramine HCl (Benadryl) 50 mg IVP Q4H PRN PRN Reason: Allergy symptoms Last Admin: 08/23/16 05:40 Dose: 50 mg Ondansetron HCl (Zofran Inj) 4 mg IVP Q6H PRN PRN Reason: Nausea/Vomiting Last Admin: 08/22/16 12:41 Dose: 4 mg Pantoprazole Sodium (Protonix Inj) 40 mg IVP DAILY IAN Last Admin: 08/23/16 09:33 Dose: 40 mg Physical Exam - Constitutional Appears: Well, No Acute Distress - Head Exam Head Exam: ATRAUMATIC, NORMOCEPHALIC - Eye Exam Eye Exam: Normal appearance, PERRL. absent: Scleral icterus - ENT Exam ENT Exam: Mucous Membranes Moist, Normal Oropharynx - Neck Exam Neck exam: Negative for: Lymphadenopathy, Thyromegaly - Respiratory Exam Respiratory Exam: Clear to Auscultation Bilateral, NORMAL BREATHING PATTERN. absent: Wheezes, Respiratory Distress - Cardiovascular Exam Cardiovascular Exam: REGULAR RHYTHM, +S1, +S2 - GI/Abdominal Exam GI & Abdominal Exam: Soft. absent: Distended, Tenderness - Extremities Exam Extremities exam: Positive for: normal capillary refill. Negative for: pedal edema - Neurological Exam Neurological exam: Alert, Oriented x3 - Psychiatric Exam Psychiatric exam: Normal Affect, Normal Mood - Skin Skin Exam: Dry, Normal Color, Warm Results - Vital Signs Recent Vital Signs: Last Vital Signs Temp 97.8 F 08/23/16 06:00 Pulse 78 08/23/16 06:00 Resp 18 08/23/16 06:00 BP 109/65 08/23/16 06:00 Pulse Ox 100 08/23/16 06:00 - Labs Result Diagrams: 08/23/16 08:00 08/23/16 08:00 Labs: Laboratory Results - last 24 hr 08/23/16 08/23/16 08:00 08:00 WBC 5.6 D RBC 3.84 Hgb 12.2 Hct 35.8 L MCV 93.2 MCH 31.8 MCHC 34.1 RDW 12.4 Plt Count 313 MPV 10.1 Sodium 137 Potassium 4.3 Chloride 108 Carbon Dioxide 23 Anion Gap 10 BUN 11 Creatinine 0.8 Est GFR ( Amer) > 60 Est GFR (Non-Af Amer) > 60 Random Glucose 150 H Calcium 7.9 L Assessment & Plan - Assessment and Plan (Free Text) Assessment: 31 year old female who presents with abdominal pain, enteritis on CT scan. 1. Abdominal pain 2. Enteritis Plan: -abdominal pain is resolved -advance diet as tolerated -recommend protonix 40 mg po daily -recommend elective EGD/Colonoscopy as outpatient for further evaluation to r/o IBD considering h/o abnormal CT scans -explained this to patient -she feels better and if tolerating diet wants to go home soon - Date & Time Date: 08/23/16 Time: 11:03
--- NOTE | 2016-08-23 13:29 | CP.PCM.DIS ---
<Jaxson Espinoza - Last Filed: 08/24/16 15:25> Provider - Provider Date of Admission: 08/22/16 08:00 Attending physician: Joshua Gregory MD Primary care physician: Christen Buenrostro MD Consults: GI: Tl Time Spent in preparation of Discharge (in minutes): 45 Hospital Course - Lab Results Lab Results: Most Recent Lab Values WBC 5.6 10^3/ul (4.5-11.0) D 08/23/16 08:00 RBC 3.84 10^6/uL (3.5-6.1) 08/23/16 08:00 Hgb 12.2 gm/dL (12.0-16.0) 08/23/16 08:00 Hct 35.8 % (36.0-48.0) L 08/23/16 08:00 MCV 93.2 fL (80.0-105.0) 08/23/16 08:00 MCH 31.8 pg (25.0-35.0) 08/23/16 08:00 MCHC 34.1 g/dl (31.0-37.0) 08/23/16 08:00 RDW 12.4 % (11.5-14.5) 08/23/16 08:00 Plt Count 313 10^3/uL (120.0-450.0) 08/23/16 08:00 MPV 10.1 fl (7.0-11.0) 08/23/16 08:00 Gran % 85.8 % (50.0-68.0) H 08/22/16 07:50 Lymph % (Auto) 8.1 % (22.0-35.0) L 08/22/16 07:50 Starr % (Auto) 5.2 % (1.0-6.0) 08/22/16 07:50 Eos % (Auto) 0.7 % (1.5-5.0) L 08/22/16 07:50 Baso % (Auto) 0.2 % (0.0-3.0) 08/22/16 07:50 Gran # 12.68 (1.4-6.5) H 08/22/16 07:50 Lymph # 1.2 (1.2-3.4) 08/22/16 07:50 Starr # 0.8 (0.1-0.6) H 08/22/16 07:50 Eos # 0.1 (0.0-0.7) 08/22/16 07:50 Baso # 0.03 K/mm3 (0.0-2.0) 08/22/16 07:50 Sodium 137 mmol/L (132-148) 08/23/16 08:00 Potassium 4.3 mmol/L (3.6-5.0) 08/23/16 08:00 Chloride 108 mmol/L (95-110) 08/23/16 08:00 Carbon Dioxide 23 mmol/L (21-33) 08/23/16 08:00 Anion Gap 10 (10-20) 08/23/16 08:00 BUN 11 mg/dL (7-21) 08/23/16 08:00 Creatinine 0.8 mg/dL (0.5-1.4) 08/23/16 08:00 Est GFR ( Amer) > 60 08/23/16 08:00 Est GFR (Non-Af Amer) > 60 08/23/16 08:00 Random Glucose 150 mg/dL (70-110) H 08/23/16 08:00 Calcium 7.9 mg/dL (8.4-10.5) L 08/23/16 08:00 Total Bilirubin 0.5 mg/dL (0.2-1.3) 08/22/16 07:50 AST 26 U/L (15-39) 08/22/16 07:50 ALT 41 U/L (7-56) 08/22/16 07:50 Alkaline Phosphatase 73 U/L (38-133) 08/22/16 07:50 Total Protein 7.4 g/dL (5.8-8.3) 08/22/16 07:50 Albumin 4.5 g/dL (3.0-4.8) 08/22/16 07:50 Globulin 2.9 gm/dL 08/22/16 07:50 Albumin/Globulin Ratio 1.5 (1.1-1.8) 08/22/16 07:50 Lipase 46 U/L (23-300) 08/22/16 07:50 Urine Color Yellow (YELLOW) 08/22/16 10:20 Urine Appearance Slight-cloudy (CLEAR) 08/22/16 10:20 Urine pH 5.5 (4.7-8.0) 08/22/16 10:20 Ur Specific [place] >= 1.030 (1.005-1.035) 08/22/16 10:20 Urine Protein 30 mg/dL (<30 mg/dL) H 08/22/16 10:20 Urine Glucose (UA) Negative mg/dL (NEGATIVE) 08/22/16 10:20 Urine Ketones Negative mg/dL (NEGATIVE) 08/22/16 10:20 Urine Blood Large (NEGATIVE) H 08/22/16 10:20 Urine Nitrate Negative (NEGATIVE) 08/22/16 10:20 Urine Bilirubin Negative (NEGATIVE) 08/22/16 10:20 Urine Urobilinogen 0.2 E.U./dL (<1 E.U./dL) 08/22/16 10:20 Ur Leukocyte Esterase Negative Elizabeth/uL (NEGATIVE) 08/22/16 10:20 Urine RBC 25 - 30 /hpf (0-2) 08/22/16 10:20 Urine WBC 1 - 3 /hpf (0-6) 08/22/16 10:20 Ur Epithelial Cells 4 - 5 /hpf (0-5) 08/22/16 10:20 Urine Bacteria Mod (NEG) 08/22/16 10:20 - Hospital Course Hospital Course: Upon Admission: 31yo F with PMHx of Uterine Fibroids here for evaluation of Abdominal pain. Patient reports one episode of diarrhea and vomiting. Patient reported allergy to Aspirin upon admission and stated that she takes midol/ibuprofen at home. CT abd showed thick walled loops of small bowel in the RUQ concerning for enteritis vs. inflammatory bowel disease. Patient had leukocytosis on admission and was started on Abx, Leukocytosis resolved the following day. Hospital course was complicated by her having an anaphylaxis reaction to IV toradol and was given Epi, steroids, and breathing treatments with relief. GI consult was obtained who recommended Protonix and outpatient elective EGD/Colonoscopy to rule out IBD. Patient tolerated diet. Was prescribed a Medrol dose pack for home and was discharged with close follow up as out-patient. Patient understands and agrees with plan. 1. Abd pain; resolved; likely viral enteritis. out-patient elective EGD/ Colonoscopy for further workup 2. Anaphalaxis reaction; NSAID allergy. Improved. Medrol dose pack 3. Hx of Uterine fibroids Upon Discharge: Patient is cleared for discharge as per Dr. Gregory. 1. Follow up with you Primary Care Physician within 1 week 2. Follow up with GI for elective out-patient EGD/Colonoscopy. Call for appointment 3. Take new meds as directed. (Prescription Electronically sent to [facility]) 4. Return to the ER with any concerning symptoms New Prescriptions: Medrol Dose Pack (21tabs) Protonix 40mg PO Daily #30/0 Discharge Exam - Head Exam Head Exam: ATRAUMATIC, NORMAL INSPECTION, NORMOCEPHALIC - Eye Exam Eye Exam: EOMI, Normal appearance. absent: Scleral icterus - Respiratory Exam Respiratory Exam: Clear to PA & Lateral, NORMAL BREATHING PATTERN. absent: Decreased Breath Sounds, Rales, Rhonchi, Wheezes, Respiratory Distress - Cardiovascular Exam Cardiovascular Exam: RRR, +S1, +S2. absent: JVD - GI/Abdominal Exam GI & Abdominal Exam: Soft. absent: Distended, Guarding, Rebound, Tenderness - Extremities Exam Extremities exam: normal inspection - Neurological Exam Neurological exam: Alert, Normal Gait, Oriented x3 - Psychiatric Exam Psychiatric exam: Normal Affect, Normal Mood - Skin Skin Exam: Dry, Intact, Normal Color, Warm Discharge Plan - Discharge Medications Prescriptions: Methylprednisolone [Medrol Dose Pack (21 tabs)] See Taper PO DAILY #21 mg Pantoprazole Sodium [Protonix] 40 mg PO DAILY #30 tablet.dr - Follow Up Plan Condition: STABLE Disposition: HOME/ ROUTINE Instructions: Acute Abdominal Pain (DC), Acute Abdominal Pain (GEN) Additional Instructions: Patient is cleared for discharge as per Dr. Gregory. 1. Follow up with you Primary Care Physician within 1 week 2. Follow up with GI for elective out-patient EGD/Colonoscopy. Call for appointment 3. Take new meds as directed. (Prescription Electronically sent to [facility]) 4. Return to the ER with any concerning symptoms New Prescriptions: Medrol Dose Pack (21tabs) Protonix 40mg PO Daily #30/0 Referrals: Christen Buenrostro MD [Primary Care Provider] - <Joshua Gregory - Last Filed: 08/24/16 16:02> Provider - Provider Date of Admission: 08/22/16 08:00 Attending physician: Joshua Gregory MD Primary care physician: Christen Buenrostro MD Hospital Course - Lab Results Lab Results: Most Recent Lab Values WBC 5.6 10^3/ul (4.5-11.0) D 08/23/16 08:00 RBC 3.84 10^6/uL (3.5-6.1) 08/23/16 08:00 Hgb 12.2 gm/dL (12.0-16.0) 08/23/16 08:00 Hct 35.8 % (36.0-48.0) L 08/23/16 08:00 MCV 93.2 fL (80.0-105.0) 08/23/16 08:00 MCH 31.8 pg (25.0-35.0) 08/23/16 08:00 MCHC 34.1 g/dl (31.0-37.0) 08/23/16 08:00 RDW 12.4 % (11.5-14.5) 08/23/16 08:00 Plt Count 313 10^3/uL (120.0-450.0) 08/23/16 08:00 MPV 10.1 fl (7.0-11.0) 08/23/16 08:00 Gran % 85.8 % (50.0-68.0) H 08/22/16 07:50 Lymph % (Auto) 8.1 % (22.0-35.0) L 08/22/16 07:50 Starr % (Auto) 5.2 % (1.0-6.0) 08/22/16 07:50 Eos % (Auto) 0.7 % (1.5-5.0) L 08/22/16 07:50 Baso % (Auto) 0.2 % (0.0-3.0) 08/22/16 07:50 Gran # 12.68 (1.4-6.5) H 08/22/16 07:50 Lymph # 1.2 (1.2-3.4) 08/22/16 07:50 Starr # 0.8 (0.1-0.6) H 08/22/16 07:50 Eos # 0.1 (0.0-0.7) 08/22/16 07:50 Baso # 0.03 K/mm3 (0.0-2.0) 08/22/16 07:50 Sodium 137 mmol/L (132-148) 08/23/16 08:00 Potassium 4.3 mmol/L (3.6-5.0) 08/23/16 08:00 Chloride 108 mmol/L (95-110) 08/23/16 08:00 Carbon Dioxide 23 mmol/L (21-33) 08/23/16 08:00 Anion Gap 10 (10-20) 08/23/16 08:00 BUN 11 mg/dL (7-21) 08/23/16 08:00 Creatinine 0.8 mg/dL (0.5-1.4) 08/23/16 08:00 Est GFR ( Amer) > 60 08/23/16 08:00 Est GFR (Non-Af Amer) > 60 08/23/16 08:00 Random Glucose 150 mg/dL (70-110) H 08/23/16 08:00 Calcium 7.9 mg/dL (8.4-10.5) L 08/23/16 08:00 Total Bilirubin 0.5 mg/dL (0.2-1.3) 08/22/16 07:50 AST 26 U/L (15-39) 08/22/16 07:50 ALT 41 U/L (7-56) 08/22/16 07:50 Alkaline Phosphatase 73 U/L (38-133) 08/22/16 07:50 Total Protein 7.4 g/dL (5.8-8.3) 08/22/16 07:50 Albumin 4.5 g/dL (3.0-4.8) 08/22/16 07:50 Globulin 2.9 gm/dL 08/22/16 07:50 Albumin/Globulin Ratio 1.5 (1.1-1.8) 08/22/16 07:50 Lipase 46 U/L (23-300) 08/22/16 07:50 Urine Color Yellow (YELLOW) 08/22/16 10:20 Urine Appearance Slight-cloudy (CLEAR) 08/22/16 10:20 Urine pH 5.5 (4.7-8.0) 08/22/16 10:20 Ur Specific [place] >= 1.030 (1.005-1.035) 08/22/16 10:20 Urine Protein 30 mg/dL (<30 mg/dL) H 08/22/16 10:20 Urine Glucose (UA) Negative mg/dL (NEGATIVE) 08/22/16 10:20 Urine Ketones Negative mg/dL (NEGATIVE) 08/22/16 10:20 Urine Blood Large (NEGATIVE) H 08/22/16 10:20 Urine Nitrate Negative (NEGATIVE) 08/22/16 10:20 Urine Bilirubin Negative (NEGATIVE) 08/22/16 10:20 Urine Urobilinogen 0.2 E.U./dL (<1 E.U./dL) 08/22/16 10:20 Ur Leukocyte Esterase Negative Elizabeth/uL (NEGATIVE) 08/22/16 10:20 Urine RBC 25 - 30 /hpf (0-2) 08/22/16 10:20 Urine WBC 1 - 3 /hpf (0-6) 08/22/16 10:20 Ur Epithelial Cells 4 - 5 /hpf (0-5) 08/22/16 10:20 Urine Bacteria Mod (NEG) 08/22/16 10:20 Attending/Attestation - Attestation I have personally seen and examined this patient.: Yes I have fully participated in the care of the patient.: Yes I have reviewed all pertinent clinical information, including history, physical exam and plan: Yes Notes (Text): 08/23/16 31 year old female with past medical history of uterine fibroids who presented with complaint of abdominal pain with nausea, vomiting and diarrhea x [address] abd/pelvis showed dilated small bowel consistent with possible enteritis. She was started on fluids and protonix. She received one dose of morphine in ER afterwhich she vomited and she felt it was too strong. She refused morphine and wanted another iv medication. Patient reported she takes ibuprofen and midol at home without reaction. She was given toradol but had allergic reaction last night. She received benadryl, solumedrol and epinephrine. Today she is much better. I did advise her to avoid ALL NSAIDs and prescribed medrol dosepack. She was advised to follow up with an sports book board attendant as well. Overnight her symptoms improved and her diet was advanced which she tolerated. Her abdominal pain has resolved. She was seen by GI who recommended protonix and outpatient EGD/colonoscopy. She initially had leukocytosis of 14.8 likely reactive secondary to above. This has resolved. Recommended outpatient DIRECTOR PERIOPERATIVE follow up for fibroids and persistent menstrual pains. Joshua Gregory MD Hospitalist.
[2016-08-23 15:36] VITALS: PULSE 82
== END 2016-08-23 15:38 | disposition home or self-care (01) ==
LOC: ED 07:32 → EROBSV 08:00 → ERH 12:19 → 3RNO 13:40
PROVIDERS: ADMIT Internal Medicine; ATTEND Internal Medicine
DX: R10.9 Unspecified abdominal pain (principal); D25.9 Leiomyoma of uterus, unspecified; T88.6XXA Anaphylactic reaction due to adverse effect of correct drug or medicament properly administered, initial encounter; T39.8X5A Adverse effect of other nonopioid analgesics and antipyretics, not elsewhere classified, initial encounter; Z88.6 Allergy status to analgesic agent; Z87.891 Personal history of nicotine dependence; Z83.3 Family history of diabetes mellitus
CPT/HCPCS: 36415; 74176; 80048; 80053; 81001; 83690; 85025; 85027; 87491; 87591; 93005; 94640; 96365; 96374; 99285; C9113; G0378; J0171; J0696; J1200; J1885; J2270; J2405; J2930; J7040